=== PATIENT | female | born 1980 | race Caucasian/White ===

== ENCOUNTER 2017-06-21 16:19 | Emergency (ER) | payer SELFPAY ==
[~2017-06-21] VITALS: Ht 154.9 cm; Wt 83.9 kg
[2017-06-21 16:30] VITALS: BP 141/86
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
[2017-06-21] MEDS ORDERED: IBUPROFEN600 MG ORAL (17:37)
[2017-06-21] MEDS ORDERED: ROBAXIN-750750 MG PO (17:37)
[2017-06-21 18:00] VITALS: BP 141/86
== END 2017-06-21 18:00 | disposition home or self-care (01) ==
LOC: EMR 17:40
DX: S29.012A Strain of muscle and tendon of back wall of thorax, initial encounter (principal); V43.52XA Car driver injured in collision with other type car in traffic accident, initial encounter; Y92.410 Unspecified street and highway as the place of occurrence of the external cause
CPT/HCPCS: 99283

== ENCOUNTER 2018-10-06 20:41 | Emergency (ER) | payer MEDICAID ==
[~2018-10-06] VITALS: Ht 152.4 cm; Wt 74.8 kg
[~2018-10-06 20:41] MED LIST: IBUPROFEN600 MG ORAL; ROBAXIN-750750 MG PO
[2018-10-06] MEDS ORDERED: ALBUTEROL SULF8.5 GM INH (20:52)
--- NOTE | 2018-10-06 20:55 | NUR ---
ED Nurse Note: Vaginal discharge , recurrent.
[2018-10-06 20:56] VITALS: BP 145/90
--- NOTE | 2018-10-06 20:57 | NUR ---
ED Nurse Note: Urine sample collected.
--- NOTE | 2018-10-06 21:08 | NUR ---
ED Nurse Note: Patient in room awaiting examination.
[2018-10-06 21:17] LABS: APPEARANCE,URINE CLEAR; BILIRUBIN, URINE NEGATIVE (NEGATIVE); COLOR,URINE PALE YELLOW; GLUCOSE, URINE (UA) NEGATIVE (NEGATIVE); KETONES,URINE NEGATIVE (NEGATIVE); LEUKOCYTE ESTERASE ,URINE 3+ (NEGATIVE); NITRITE,URINE NEGATIVE (NEGATIVE); PH,URINE 5 (4.5-8.0); PROTEIN,URINE NEGATIVE (NEGATIVE); UROBILINOGEN,URINE NORMAL MG/DL (0.0-1.0)
[2018-10-06] MEDS ORDERED: NITROFURANTOIN100 M2 ORAL (21:44)
[2018-10-06] MEDS ORDERED: METROGEL-VAGINA70 G1 VAGIN (21:44)
[2018-10-06] MEDS ORDERED: FLUCONAZOLE100 MG ORAL (21:44)
--- NOTE | 2018-10-06 21:50 | NUR ---
ED Nurse Note: Elza BARAJAS for vaginal exam
--- NOTE | 2018-10-06 21:57 | NUR ---
ED Nurse Note: Patient discharged in stable condition per ERMD. Patient vebalized understanding of discharge instructions. ID band removed. Patient discharged to persona vehicle departed with all belongings.
[2018-10-06 21:58] VITALS: BP 145/90
--- NOTE | 2018-10-06 22:01 | NUR ---
ED Nurse Note: Patient has been cleared for discharge. Patient A&Ox4, ambulatory with steady gait, no s/s of acute distress. Patient departed with all belongings.
--- NOTE | 2018-10-06 22:05 | Emergency Room Report ---
History of Present Illness General Chief Complaint: Female Urogenital Problems Source: Patient Present Illness HPI Patient presents with complaints of vaginal discharge increased redness and discomfort in the external vaginal area as well Reports that she had taken some antibiotics about a month ago for her throat More recently she has had increased vaginal discharge or foul smell Denies any other abdominal pain denies any fevers or chills she has noticed increased erythema as well in the external vaginal region Patient reports that she had douched, and also taken ainy-dag-otlwpsn medication without much improvement Patient reports that she has been sexually active with one partner however does not feel that she has an STD Allergies: Coded Allergies: No Known Allergies (Unverified , 10/24/15) Patient History Past Medical History: see triage record Pertinent Family History: none Last Menstrual Period: 09/15/2018 Now: No Reviewed Nursing Documentation: PMH: Agreed; PSxH: Agreed Nursing Documentation-PMH Past Medical History: No History, Except For Review of Systems All Other Systems: negative except mentioned in HPI Physical Exam Vital Signs Date Time Temp Pulse Resp B/P (MAP) Pulse Ox O2 Delivery O2 Flow Rate FiO2 10/06/18 20:45 98.2 83 16 145/90 99 Room Air Sp02 EP Interpretation: reviewed, normal General Appearance: well appearing, no apparent distress Head: normocephalic, atraumatic Eyes: bilateral eye PERRL, bilateral eye EOMI ENT: normal pharynx Neck: supple Respiratory: lungs clear, no retraction, no accessory muscle use Cardiovascular #1: regular rate, rhythm Gastrointestinal: non tender, soft Genitourinary: other - External exam reveals erythema on the labora major and minor, grayish discharge vaginally Musculoskeletal: normal inspection Neurologic: alert, oriented x3 Skin: other - As above Lymphatic: no adenopathy Medical Decision Making Diagnostic Impression: Primary Impression: uti Additional Impression: vaginitis ER Course Patient's clinical exam is consistent with vaginitis also appears to be a yeast type component to this, Patient is treated clinically urine sample also shows evidence of UTI Patient requires close follow-up with female clinic and further testing Is otherwise stable for close outpatient follow-up Labs Test 10/06/18 20:50 Urine Color Pale yellow Urine Appearance Clear Urine pH 5 (4.5-8.0) Urine Specific [place] 1.020 (1.005-1.035) Urine Protein Negative (NEGATIVE) Urine Glucose (UA) Negative (NEGATIVE) Urine Ketones Negative (NEGATIVE) Urine Blood 4+ (NEGATIVE) Urine Nitrite Negative (NEGATIVE) Urine Bilirubin Negative (NEGATIVE) Urine Urobilinogen Normal MG/DL (0.0-1.0) Urine Leukocyte Esterase 3+ (NEGATIVE) Urine RBC 2-4 /HPF (0 - 2) Urine WBC 5-10 /HPF (0 - 2) Urine Squamous Epithelial Cells Few /LPF (NONE/OCC) Urine Bacteria Few /HPF (NONE) Urine HCG, Qualitative Negative (NEGATIVE) Last Vital Signs Date Time Temp Pulse Resp B/P (MAP) Pulse Ox O2 Delivery O2 Flow Rate FiO2 10/06/18 21:58 98.2 79 16 145/90 99 Room Air Status: improved Disposition: HOME, SELF-CARE Condition: Stable Scripts Metronidazole* (METROGEL-VAGINAL*) 70 Gm Gel.w.appl 1 APPL VAGIN EVERY 12 HOURS for 7 Days, #70 GM Prov: Rustam Aldana DO 10/06/18 Fluconazole (FLUCONAZOLE) 100 Mg Tablet 100 MG ORAL DAILY, #3 TAB 0 Refills Prov: Rustam Aldana DO 10/06/18 Nitrofurantoin Monohyd/M-Cryst* (MACROBID 100 MG*) 100 Mg Capsule 100 MG ORAL EVERY 12 HOURS for 7 Days, CAP Prov: Rustam Aldana DO 10/06/18 Referrals: EVERTON WALKER,REFERRING (PCP) [facility] Patient Instructions: Urinary Tract Infection, Vaginitis Additional Instructions: Patient is provided with the discharge instructions notified to follow up with primary doctor in the next 2-3 days otherwise return to the er with any worsening symptoms. Please note that this report is being documented using [employer] technology. This can lead to erroneous entry secondary to incorrect interpretation by the dictating instrument. Rustam Aldana DO Oct 06, 2018 22:05
== END 2018-10-06 22:01 | disposition home or self-care (01) ==
LOC: EMR 21:20
DX: N39.0 Urinary tract infection, site not specified (principal); N76.0 Acute vaginitis
CPT/HCPCS: 81003; 81025; 99283